=== PATIENT | male | born 1995 | race Caucasian/White ===

== ENCOUNTER 2019-11-24 19:05 | Emergency (ER) | payer MEDICAID, MEDICARE ==
[~2019-11-24] VITALS: Ht 177.8 cm; Wt 77.2 kg
[2019-11-24] MEDS ORDERED: TETanus/Pertussis (Acell)/Diphther VAC/PF (Tdap-Adult) 0.5ml syringe IMVAC ONE (19:30)
[2019-11-24] MEDS ORDERED: LIDOcaine 1% W/epiNEPHrine 1:200,000 10ml vial IJ ONE (19:30)
[2019-11-24] MEDS ORDERED: bacitracin 15gm ointment TP ONE (19:30)
--- NOTE | 2019-11-24 19:53 | NUR ---
assisting RN with pt care, pt to CT with police detective
--- NOTE | 2019-11-24 20:23 | NUR ---
relieving RN for break, pt is resting quietly on neil, provider at bedside to suture lac
[2019-11-24 21:12] VITALS: BP 110/51
== END 2019-11-24 21:13 ==
LOC: ER 19:05
DX: S01.111A Laceration without foreign body of right eyelid and periocular area, initial encounter (principal); J45.909 Unspecified asthma, uncomplicated; F15.90 Other stimulant use, unspecified, uncomplicated; F11.90 Opioid use, unspecified, uncomplicated; X58.XXXA Exposure to other specified factors, initial encounter; Y93.89 Activity, other specified; Y92.89 Other specified places as the place of occurrence of the external cause; Y99.8 Other external cause status
CPT/HCPCS: 12011; 70450; 70486; 90471; 90715; 99285